=== PATIENT | male | born 1980 | race Caucasian/White ===

== ENCOUNTER 2022-02-27 10:42 | Emergency (ER) | payer BC, OTHER ==
[2022-02-27 10:48] VITALS: BP 149/93; PULSE 83; RESP 18; TEMP 98.6; BMI 27.4
[2022-02-27] MEDS ORDERED: DIPHTH,PERTUSS(ACELL),TET 0.5 ML DISP.SYRIN IM ONE ×2 (11:03→11:25)
== END 2022-02-27 11:43 | disposition home or self-care (01) ==
LOC: JER 10:42 → JERFT 10:42
PROC: 0HQFXZZ Repair Right Hand Skin, External Approach (ICD-10-PCS; principal; 2022-02-27)
PROC: 3E0234Z Introduction of Serum, Toxoid and Vaccine into Muscle, Percutaneous Approach (ICD-10-PCS; 2022-02-27)
DX: S61.011A Laceration without foreign body of right thumb without damage to nail, initial encounter (principal); W26.8XXA Contact with other sharp object(s), not elsewhere classified, initial encounter
CPT/HCPCS: 90715; 99282-25

== ENCOUNTER 2022-03-06 11:40 | Emergency (ER) | payer OTHER, BC ==
[2022-03-06 11:51] VITALS: BP 132/92; PULSE 80; RESP 20; TEMP 97.8; BMI 27.7
[2022-03-06] MEDS ORDERED: BACITRACIN ZINC 15 GM TUBE TOPICAL OINTMENT ONE (12:16)
== END 2022-03-06 12:34 | disposition home or self-care (01) ==
LOC: JERFT 11:40
DX: Z48.02 Encounter for removal of sutures (principal)
CPT/HCPCS: 99281-25